=== PATIENT | female | born 2000 | race Caucasian/White ===

== ENCOUNTER → 2021-06-14 | Outpatient (CLI) | payer BC ==
[~2021-06-14] MED LIST: CEPH500C PO; DICY20TA57 PO; FAMO20TA5 PO; NITR100C3 PO
--- NOTE | 2021-06-14 15:49 | Diagnostic Imaging Report ---
PROCEDURE: US Thyroid. TECHNIQUE: Multiple real-time grayscale images were obtained of the thyroid in various projections. INDICATION: Nontoxic goiter. FINDINGS: Right and left lobes of the thyroid gland measure 5.2 x 1.7 x 1.4 cm and 4.5 x 1.5 x 1.1 cm, respectively. There is no evidence of dominant mass. Blood flow is unremarkable. No periglandular abnormality was documented. IMPRESSION: Unremarkable thyroid ultrasound. Dictated by: Dictated on workstation # [id number]
== END ==
LOC: RAD 15:15
PROVIDERS: ATTEND Family Medicine
DX: E04.9 Nontoxic goiter, unspecified (principal); I88.1 Chronic lymphadenitis, except mesenteric; R63.4 Abnormal weight loss
CPT/HCPCS: 76536